=== PATIENT | male | born 1965 | race Caucasian/White ===

== ENCOUNTER 2017-05-29 13:49 | Inpatient (IN) | payer OTHER, MEDICARE ==
[2017-05-29] VITALS (33 sets, daily range): BP systolic 90–156; BP diastolic 55–91
[~2017-05-29] VITALS: Ht 177.8 cm; Wt 95.3 kg
--- NOTE | 2017-05-29 13:49 | NUR ---
Patient BIBA ACLS, transferred to bed 7. RN evaluating patient at bedside.
--- NOTE | 2017-05-29 14:36 | NUR ---
Patient transferred to bed 6 for further care. RN evaluating patient at bedside.
--- NOTE | 2017-05-29 14:47 | NUR ---
Dr. Alva evaluating patient at bedside.
--- NOTE | 2017-05-29 14:55 | NUR ---
15M BIBA C/O ETOH; PER PATHOLOGY SECRETARY/TRANSCRIPTIONIST, PT WAS RELEASED FROM [facility] TODAY AND PT DRANK 1 BOTTLE OF VODKA; AN=[id number]; PT WAS FOUND WITH [facility] FROM [facility]; UNKNOWN MEDICAL HX OR ALLERGIES; PT WAS DROWSY BUT AROUSABLE; PT IS NOW NOT AROUSABLE; RR ARE SWALOW; O2 SAT AT 83% ON RA; ER MATTEWS BY BEDSIDE
--- NOTE | 2017-05-29 15:00 | NUR ---
CALLED TO ER 6 TO INTUBATE PT AT BEDSIDE PT WAS INTUBATED AT 1508 WITH 7.5 ET TUBE AT 23 CM AT LEFT CORNER OF MOUTH Addendum: 05/29/17 at 1631 by Steff Rawls RT VENT SETTINGS AC14 VT550 PEEP 5 FIO2 100% ALARMS ON AND FUNCTIONING PROPERLY, AMBU BAG AT SIDE OF VENTILATOR AND VENTILATOR IS PLUGGED INTO RED OUTLET, B\S ARE DIMINISHED AND CLEAR, SXN PT MODERATE AMT OF THICK CREAM COLOR SECRETIONS Addendum: 05/29/17 at 1659 by Steff Rawls RT PT WAS TAKEN TO CT FOR SCAN OF HEAD AND BAGGED WITH 100% FIO2 THEN BACK TO ER 6 AND PLACED BACK ON VENT WITH SAME SETTINGS
--- NOTE | 2017-05-29 15:01 | NUR ---
1501 - PATENT IO ESTABLISED ON RIGHT LEG BY RESIDENT 1503 - 20MG ETOMIDATE GIVEN IO ON RIGHT LEG BY CRISELDA CONTRERAS 1504 - 100 MG SUCCYNYLCHOLINE GIVEN IO ON RIGHT LEG BY RN BEN 1504 - ATTEMPTED ENTUBATION BY RESIDENT 1507 - SPO2 100% VIA MANUAL VENTILATION, HR 110, BP 147/97 1508 - PT ENTUBATED BY DR RAMEY WITH 7.5 ET TUBE SECURE 23CM AT THE LIP, + COLOR CHANGE ON END TIDAL, MIST NOTED ON ET TUBE, BILATERAL CHEST RISE, AUDIBLE BL BS AUSCULTATED BY DR RAMEY, XRAY ORDERED
[2017-05-29] MEDS ORDERED: ONDANSETRON 4 MG/2 ML VIAL IVP PRN (15:20)
--- NOTE | 2017-05-29 15:32 | NUR ---
Patient will be admitted to care of Madeleine ABURTO. Admited to ICU. Will go to room ICU 5. Belongings list completed. Report to Nubia ABURTO.
[2017-05-29] MEDS ORDERED: PROPOFOL 1000 MG/100 ML PREMIX 100 ML IV ONE ×2 (15:45)
[2017-05-29] MEDS ORDERED: ETOMIDATE 20 MG/10 ML VIAL IVP ONE (15:45)
[2017-05-29] MEDS ORDERED: SUCCINYLCHOLINE CHLORIDE 200 MG/10 ML VIAL IVP ONE (15:45)
[2017-05-29] MEDS ORDERED: MULTIVITAMIN-12 10 ML, THIAMINE 100 MG, FOLIC ACID 1 MG, MAGNESIUM SULFATE 50% 2,000 MG... IV SCH ×5 (16:00)
--- NOTE | 2017-05-29 16:00 | NUR ---
PT TO CT VIA [facility] WITH UCHE APPLE RN AND URIEL EMT AND BUNDLE HELPER ON CM AND OXYGEN; NAD; STABLE FOR TRANSFER TO CT
--- NOTE | 2017-05-29 16:12 | NUR ---
Patient returned from CT scan. Dr. Alva, RT and RN re-evaluating patient at bedside.
--- NOTE | 2017-05-29 16:14 | NUR ---
PT RETURNED FROM CT WITH UCHE TREVINO EMT AND CLOUD SOFTWARE ENGINEER; NAD; WILL CONTINUE TO [facility]
[2017-05-29 16:28] LABS: ANION GAP 16.7 (8-16); CARBON DIOXIDE 23.5 mmol/L (21-32); CREATININE 0.9 mg/dL (0.7-1.3); POTASSIUM 4.2 mmol/L (3.5-5.1)
[2017-05-29 16:29] LABS: PROTHROMBIN TIME 9.4 secs (10.8-13.4)
[2017-05-29 16:33] LABS: ALBUMIN 3.7 g/dL (3.4-5.0); TOTAL BILIRUBIN 0.4 mg/dL (0.0-1.0)
[2017-05-29 16:34] LABS: ACETAMINOPHEN < 0.5 ug/ml (10-30); SALICYLATE < 2.8 mg/dL (2.8-20.0)
[2017-05-29 16:36] LABS: CHOL/HDL RATIO 2.4 (1-4.5); FREE T4 (FREE THYROXINE) 1.15 ng/dL (0.76-1.46); MAGNESIUM 2.3 mg/dL (1.8-2.4); PHOSPHORUS 4.1 mg/dL (2.5-4.9); THYROID STIMULATING HORMONE 1.03 uIU/mL (0.34-3.74)
[2017-05-29 16:43] LABS: BASOPHILS # (AUTO) 0.4 K/uL (0.00-0.22); EOSINOPHILS # (AUTO) 0.5 K/uL (0-0.4); HEMATOCRIT 42.5 % (36-52); HEMOGLOBIN 13.9 g/dL (12.0-18.0); LYMPHOCYTES # (AUTO) 1.1 K/uL (2.0-11.5); MEAN CORPUSCULAR HEMOGLOBIN 32 pg (27-31); MEAN CORPUSCULAR HGB CONC 33 g/dL (33-37); MEAN CORPUSCULAR VOLUME 97 fL (80-94); MONOCYTES # (AUTO) 0.5 K/uL (0.8-1.0); NEUTROPHILS # (AUTO) 4.3 K/uL (1.8-7.7); PLATELET COUNT (AUTO) 311 K/uL (140-450); RED BLOOD CELL COUNT(AUTO) 4.39 MIL/uL (4.20-6.10); RED CELL DISTRIBUTION WIDTH 14.4 % (11.6-13.7); WHITE BLOOD COUNT (AUTO) 6.8 K/uL (4.8-10.8)
--- NOTE | 2017-05-29 16:45 | NUR ---
pt transferred to icu 5 with miguel valentin, danyell rn, and rt; vss; pt tolerating vent; pulse ox=98%; pt stable for transfer
--- NOTE | 2017-05-29 16:55 | NUR ---
PT TRANSFERRED TO ICU 5 BAGGED WITH 100% FIO2 AND PLACED BACK ON VENT
--- NOTE | 2017-05-29 17:00 | NUR ---
ADMITTED PT FROM ER BY JUDY, PT IS SEDATED, FULL CODE, ON PROPOFOL 5 MCG/KG/MIN, BEDSIDE MONITOR SHOWS SR. ETT TO VENT WITH SETTING FIO2 80%, RR 14, TV 550, PEEP 5. NO S/S OF RESPIRATORY DISTRESS NOTED, ABDOMEN SOFT WITH ACTIVE BOWEL SOUND, CARBALLO CATH IN PLACE, WITH CLEAR YELLOW URINE NOTED. PT HAS IO TO RIGHT LOWER LEG RUNNING PROPOFOL, SKIN NON INTACT OPEN WOUND TO HEEL, GENERALIZED WEAKNESS NOTED, HOB ELEVATED IN 30 DEGREES WITH LOW BED POSITION, WILL CONTINUE TO MONITOR.
--- NOTE | 2017-05-29 17:00 | NUR ---
VENT CHECK, B\S ARE CLEAR AND NO SXN REQUIRED AT THIS TIME, PT IS SEDATED WITH CRISELDA WHITE AT BEDSIDE AND FIO2 DECREASED TO 80%
[2017-05-29 17:02] LABS: APPEARANCE,URINE CLEAR (CLEAR); BILIRUBIN,URINE NEGATIVE (NEGATIVE); BLOOD, URINE NEGATIVE (NEGATIVE); COLOR,URINE YELLOW (YELLOW); LEUKOCYTE ESTERASE ,URINE NEGATIVE (NEGATIVE); NITRITE, URINE NEGATIVE (NEGATIVE); PH,URINE 5.5 (5.0-9.0); UGLUCOSE NEGATIVE (NEGATIVE)
[2017-05-29 17:14] LABS: BARBITURATE, URINE NEG. ng/ml (NEG <=200); BENZODIAZEPINE, URINE NEG. ng/mL (NEG <=200); CANNABINOID, URINE NEG. ng/mL (NEG <=50); COCAINE, URINE NEG. ng/mL (NEG <=300); OPIATE, URINE NEG. ng/mL (NEG <=2000); PHENCYCLIDINE SCREEN,URINE NEG. ng/mL (NEG <=25)
--- NOTE | 2017-05-29 17:15 | NUR ---
AND DR. AVILA STARTED TO INSERT CENTRAL LINE, CONSENT SIGNED BY DOCTORS.
--- NOTE | 2017-05-29 18:00 | NUR ---
CENTRAL LINE INSERTION DONE.
[2017-05-29] MEDS: NACL 0.9% 1,000 ML IV SCH (18:50)
--- NOTE | 2017-05-29 19:11 | NUR ---
RECEIVED PT STABLE ON VENT SUPPORT AT DOCUMENTED SETTINGS, SXN'D SMALL THIN YELLOW SECRETIONS, NO RESP DISTRESS OR SOB NOTED, 7.5 ETT SECURED AT 23 CM AT LIP, BAG MASK AT BEDSIDE, ALARMS SET AND AUDIBLE, VENT PLUGGED INTO RED OUTLET, WILL CONTINUE TO MONITOR.
--- NOTE | 2017-05-29 19:15 | NUR ---
ENDORSED PT TO RONEL ABURTO FOR THE CONTINUITY OF CARE.
--- NOTE | 2017-05-29 19:25 | NUR ---
RECEIVED REPORT FROM CHRISTOPHER ABURTO
--- NOTE | 2017-05-29 19:30 | NUR ---
PATIENT IN BED, NO SIGNS OF DISTRESS. PATIENT SEDATED ON PROPOFOL DRIP AT 5MICS. PATIENT INTUBATED, ETT TO VENT AC MODE, FIO2 45%, TIDAL VOLUME 500, RATE 14 PEEP 5. PATIENT HAS A CARBALLO CATHETER IN PLACE. CLEAR BREATH SOUNDS ON AUSCULTATION. ACTIVE BOWEL SOUNDS. PATIENT HAS RIGHT IJ TRIPLE LUMEN CENTRAL LINE. AND RIGHT LEG INTRAOSSEOUS CATHETER. PATIENT HAS A WOUND ON HIS RIGHT ELBOW, AND RIGHT AND LEFT HEAL. PICTURES WHERE TAKEN. PATIENT CLOSE TO NURSES STATION. CALL LIGHT WITHIN REACH. WILL CONTINUE TO MONITOR.
--- NOTE | 2017-05-29 20:00 | NUR ---
PROPOFOL DRIP REDUCED TO 2.5MICS TO GET ACHIEVE A RASS SCORE OF -3.
[2017-05-29] MEDS ORDERED: DOCUSATE SODIUM 100 MG GELCAP PO SCH (21:00)
--- NOTE | 2017-05-29 21:00 | NUR ---
INTEROSSEOUS CATHETER REMOVED, PATIENT TOLERATED WELL. PRESSURE WAS PUT ON THE SIDE AND COVERED WITH A DRESSING.
[2017-05-29] MEDS: LORazepam 2 MG/ML VIAL IVP SCH (21:23)
--- NOTE | 2017-05-29 21:30 | NUR ---
2 RNS CONFIRMED THE PLACEMENT OF THE NG TUBE PLACEMENT.
--- NOTE | 2017-05-29 21:30 | NUR ---
NG TUBE WAS INSERTED IN TO PATIENTS LEFT NARES
--- NOTE | 2017-05-29 22:30 | NUR ---
PROPOFOL WAS REDUCED TO 1.5MIC TO ACHIEVE A RASS SCORE OF -3
[2017-05-29] MEDS ORDERED: PROPOFOL 200 MG/20 ML VIAL IV ONE (22:45)
[2017-05-30] VITALS (52 sets, daily range): BP systolic 85–139; BP diastolic 52–80
--- NOTE | 2017-05-30 00:15 | NUR ---
PATIENT IN BED, NO SIGNS OF DISTRESS. O2 SATURATION 100%. VENT SETTINGS CHECKED. ALL ALARMS IN PLACE. WILL CONTINUE TO MONITOR
[2017-05-30] MEDS ORDERED: PANTOPRAZOLE 80 MG in NACL 0.9% 100 ML IV SCH (02:05)
--- NOTE | 2017-05-30 03:16 | NUR ---
PATIENT IN BED, SLEEPING NO SIGNS OF DISTRESS. VENT SETTINGS CHECKED ALL ALARMS IN PLACE
--- NOTE | 2017-05-30 04:00 | NUR ---
PATIENT CLEANED, PROPOFOL INCREASED TO 5MICS
--- NOTE | 2017-05-30 05:30 | NUR ---
PATIENT RESTLESS, PROPOFOL INCREASED TO 10MICS
[2017-05-30 05:33] LABS: BASOPHILS # (AUTO) 0.4 K/uL (0.00-0.22); BASOPHILS % (AUTO) 4.3 % (0.0-2.0); EOSINOPHILS # (AUTO) 0.3 K/uL (0-0.4); EOSINOPHILS % (AUTO) 3.9 % (0.0-4.0); HEMATOCRIT 38.8 % (36-52); LYMPHOCYTES # (AUTO) 1.9 K/uL (2.0-11.5); LYMPHOCYTES % (AUTO) 21.5 % (20.5-51.1); MEAN CORPUSCULAR HEMOGLOBIN 32 pg (27-31); MEAN CORPUSCULAR HGB CONC 34 g/dL (33-37); MEAN CORPUSCULAR VOLUME 96 fL (80-94); MONOCYTES # (AUTO) 0.7 K/uL (0.8-1.0); MONOCYTES % (AUTO) 8.2 % (1.7-9.3); NEUTROPHILS # (AUTO) 5.5 K/uL (1.8-7.7); NEUTROPHILS % (AUTO) 62.1 % (42.2-75.2); PLATELET COUNT (AUTO) 299 K/uL (140-450); RED BLOOD CELL COUNT(AUTO) 4.02 MIL/uL (4.20-6.10); RED CELL DISTRIBUTION WIDTH 15.1 % (11.6-13.7); WHITE BLOOD COUNT (AUTO) 8.8 K/uL (4.8-10.8)
[2017-05-30] MEDS: LORazepam 2 MG/ML VIAL IVP SCH ×3 (05:40→21:12)
[2017-05-30] MEDS: NACL 0.9% 1,000 ML IV SCH ×3 (06:00→14:37)
[2017-05-30 06:27] LABS: MAGNESIUM 2.2 mg/dL (1.8-2.4); PHOSPHORUS 3.5 mg/dL (2.5-4.9)
--- NOTE | 2017-05-30 06:35 | NUR ---
REC'D PT ON [place] VENT SETTINGS AC14 VT 550 PEEP 5 FIO2 30% ALARMS ON AND FUNCTIONING PROPERLY, AMBU BAG IS AT SIDE OF VENTILATOR AND VENTILATOR IS PLUGGED INTO RED OUTLET, B\S ARE CLEAR AND DIMINISHED BILATERALLY, SXN PT SMALL AMT OF YELLOW SECRETIONS, PT IS ORALLY INTUBATED WITH 7.5 ET TUBE SECURED WITH ANCHOR FAST AT 23 CM AT LEFT CORNER OF MOUTH AND SKIN INTEGRITY IS INTACT, PT IS SEDATED WITH NO SIGNS OF DISTRESS NOTED AT THIS TIME
[2017-05-30 06:47] LABS: ANION GAP 13.5 (8-16); CARBON DIOXIDE 25.2 mmol/L (21-32); CREATININE 0.9 mg/dL (0.7-1.3); POTASSIUM 3.7 mmol/L (3.5-5.1)
[2017-05-30] MEDS ORDERED: LACTULOSE 20 GM/30 ML UDC PO SCH (07:00)
--- NOTE | 2017-05-30 07:34 | NUR ---
REPORT GIVEN TO ABDULKADIR ABURTO
--- NOTE | 2017-05-30 08:00 | NUR ---
INITIAL SHIFT ASSESSMENT DONE (SEE ASSESSMENT PART). PROPOFOL DRIP D/C AT THIS TIME PER RESIDENT MD ORDER. SLEEPING BUT EASILY AROUSABLE TO NAME CALLING. NO C/O PAIN. ON VENTILATOR, TOLERATING CURRENT SETTINGS WELL. O2 SAT 95-99%. SR ON MONITOR. SBP IN 90'S. NO ECTOPY NOTED. LEFT NARES NGT PATENT, INTACT, AND CLAMPED. HOB ELEVATED. UPDATED OF PLAN OF CARE. WILL CONTINUE TO MONITOR.
[2017-05-30] MEDS: LORazepam 2 MG/ML VIAL IVP PRN ×2 (08:30→13:47)
--- NOTE | 2017-05-30 08:30 | NUR ---
BECOMES RESTLESS AT THIS TIME, TRYING TO PULL OUT ETT. CALLED RESIDENT MD AND UPDATED OF STATUS. NEW ORDER RECEIVE. GIVEN ATIVAN 1 MG IVP AND STARTED ON BILATERAL SOFT WRIST RESTRAINTS. WILL CONTINUE TO MONITOR.
[2017-05-30] MEDS: FOLIC ACID 1 MG TAB PO SCH (08:58)
[2017-05-30] MEDS: CALCIUM CARB/VIT-D 500 MG/200 IU 1 TAB PO SCH (08:58)
[2017-05-30] MEDS: PANTOPRAZOLE 40 MG INJ VIAL IVP SCH (08:58)
[2017-05-30] MEDS: MULTIVITAMIN 1 TAB PO SCH (08:59)
[2017-05-30] MEDS: THIAMINE 100 MG TAB PO SCH (08:59)
[2017-05-30] MEDS ORDERED: DOCUSATE 100 MG/10 ML UDC GT SCH (09:00)
--- NOTE | 2017-05-30 09:18 | NUR ---
PER PT MEDICAL CONDITION AND MEDICAL CHART, RD IS CURRENTLY UNABLE TO ASSESS OR SCREEN AND CATEGORIZE PATIENT'S NUTRITION RISK. PATIENT WILL BE SEEN AGAIN FOR NUTRITION SCREENING WITHIN 2 DAYS FROM ADMIT DATE. 05/31/17 KVNG FRANCES MBA, RD
--- NOTE | 2017-05-30 09:25 | NUR ---
VENT CHECK, NO SXN REQUIRED AT THIS TIME, AIRWAY IS PATENT AND PT IS SLEEPING
--- NOTE | 2017-05-30 10:00 | NUR ---
RESTING IN BED. NO SIGNS OF PAIN OR AGITATION NOTED. TOLERATING VENTILATOR WELL. O2 SAT 98-100%. ST ON MONITOR. SBP IN 100'S. NO ECTOPY NOTED. HOB ELEVATED. WILL CONTINUE TO MONITOR.
--- NOTE | 2017-05-30 10:10 | NUR ---
ROVING INSPECTOR IS IN THE ROOM DOING 2D ECHO TO THE PATIENT.
--- NOTE | 2017-05-30 11:10 | NUR ---
VENT CHECK, SXN PT FOR SPUTUM MODERATE AMT OF THICK YELLOW SECERTIONS, PT IS AWAKE AIRWAY IS PATENT
--- NOTE | 2017-05-30 12:00 | NUR ---
REASSESSMENT DONE. NEURO STATUS STILL THE SAME. NO C/O PAIN. TOLERATING CURRENT VENTILATOR SETTINGS WELL. O2 SAT 99-100%. ST ON MONITOR. SBP IN 100'S. NO ECTOPY NOTED. HOB ELEVATED. UPDATED OF PLAN OF CARE. WILL CONTINUE TO MONITOR.
--- NOTE | 2017-05-30 13:09 | NUR ---
VENT CHECK, NO SXN REQUIRED AT THIS TIME, PT IS AWAKE AND BITTING ON TUBE
--- NOTE | 2017-05-30 13:47 | NUR ---
BECOMES RESTLESS AGAIN AT THIS TIME, TRYING TO PULL OUT THE ETT AND NGT. GIVEN ATIVAN 1 MG IVP. WILL CONTINUE TO MONITOR.
--- NOTE | 2017-05-30 14:00 | NUR ---
SLEEPING AT THIS TIME BUT EASILY AROUSABLE. NO SIGNS OF PAIN OR AGITATION NOTED. TOLERATING VENTILATOR WELL. O2 SAT 94-97%. ST ON MONITOR. SBP IN 100'S. NO ECTOPY NOTED. HOB ELEVATED. WILL CONTINUE TO MONITOR.
--- NOTE | 2017-05-30 15:04 | NUR ---
VENT CHECK, SXN PT SMALL AMT OF YELLOW SECRETIONS, PT IS AWAKE AND BITTING THE ET TUBE WITH NO SIGNS OF DISTRESS NOTED AT THIS TIME
--- NOTE | 2017-05-30 15:20 | NUR ---
DR BROOKS IS IN THE ROOM. RT IS ALSO IN THE ROOM. MD TALK TO THE PATIENT. NEW ORDERS RECEIVE.
--- NOTE | 2017-05-30 15:25 | NUR ---
PT EXTUBATED PER AND PLACED ON 3LNC
--- NOTE | 2017-05-30 15:25 | NUR ---
RT EXTUBATED THE PATIENT AT THIS TIME AFTER THOROUGHLY SUCTIONING THE ETT AND MOUTH PER DR BROOKS'S ORDER. TOLERATED THE PROCEDURE WELL. RT PUT THE PATIENT ON O2 AT 3 L/MIN VIA NC AFTER EXTUBATION. O2 SAT 94%. WILL CONTINUE TO MONITOR.
[2017-05-30] MEDS: DEXT 5% / NACL 0.45% 1,000 ML IV SCH (15:50)
--- NOTE | 2017-05-30 16:00 | NUR ---
REASSESSMENT DONE. DROWSY, FOLLOWS COMMAND. ORIENTED X3. PUENTE BUT WEAK. NO C/O PAIN OR DYSPNEA. O2 SAT 93-96% ON O2 AT 3 L/MIN VIA NC. ST ON MONITOR. SBP IN 110'S. NO ECTOPY NOTED. BODY TEMP OF 100.1 DEGREES FAHRENHEIT AT THIS TIME. GIVEN COOLING MEASURES. HOB ELEVATED. UPDATED OF PLAN OF CARE. WILL CONTINUE TO MONITOR.
[2017-05-30] MEDS: ACETAMINOPHEN 325 MG TAB PO PRN (16:41)
--- NOTE | 2017-05-30 16:41 | NUR ---
C/O HEADACHE AT THIS TIME. GIVEN TYLENOL 650 MG VIA NGT. WILL CONTINUE TO MONITOR.
--- NOTE | 2017-05-30 18:00 | NUR ---
HAS BM AT THIS TIME, MODERATE AMOUNT, PASTY, AND BROWN COLOR. GIVEN PARTIAL BATH AND LINENS ARE CHANGE. TOLERATED THE PROCEDURE WELL. NO C/O PAIN OR DYSPNEA. O2 SAT 94-96% ON O2 AT 3 L/MIN VIA NC. ST ON MONITOR. SBP IN 100'S-110'S. NO ECTOPY NOTED. HOB ELEVATED. WILL CONTINUE TO MONITOR.
--- NOTE | 2017-05-30 19:15 | NUR ---
REPORT TAKEN FROM EARNEST - RN WITH RESUME CARE. PT'S AWAKE, ALERT, ORIENTED X 4 WITH NPO , AWAITING FOR SWALLOW EVAL IN AM. NG TUBE AT LEFT NARE FOR MEDICATION, KEEP NPO. CARBALLO CATH IN SITU & GRAVITY TO FLOOR.
--- NOTE | 2017-05-30 19:15 | NUR ---
REPORT GIVEN TO INCOMING CRATE TIER RN, RN RENUKA.
--- NOTE | 2017-05-30 19:30 | NUR ---
ORAL CARE DONE , ORAL SWAB GIVEN , PT ABLE TO DO HIMSELF, TOLERATING WELL.
--- NOTE | 2017-05-30 20:15 | NUR ---
DR. LIMA AT THE BEDSIDE WITH PT , EDUCATE TO PT RE. SWALLOW EVAL AND KEEP NPO AT THIS TIME , PT RESPOND WELL WITH NOT SATISFIED. PT WANT TO DRINK WATER , PROVIDE ORAL CARE WITH ICE WATER SWAB. REINFORCED PT WITH HOB @ 30.
--- NOTE | 2017-05-30 20:30 | NUR ---
PT PULL OUT NG TUBE , RE ORIENTED TO ICU , PT STATUS, PT WANT TO GO AMA AT THIS TIME. EDUCATED TO PT, REGARDING AMA SITUATION WITH PT'S CONDITION. PT AGREE TO STAY AT THIS TIME . PT HAD BM X 1 WITH KAYLYN ANAL CARE DONE. CARBALLO CATH INSITU, CARE DONE , GRAVITY TO FLOOR.
[2017-05-30] MEDS ORDERED: levETIRAcetam 100 MG/ML VIAL IV ONE (21:14)
[2017-05-30] MEDS: levETIRAcetam 500 MG in NACL 0.9% 100 ML IV SCH (21:18)
--- NOTE | 2017-05-30 21:30 | NUR ---
PT WILL TRANSFER TO ROOM 111B WITH OK TO GIVE BEDSIDE REPORT AT THIS TIME.
--- NOTE | 2017-05-30 22:00 | NUR ---
REPORT ENDORSED AT BEDSIDE TO NURSE ENEIDA - RN WITH RESUME CARE. IVPB KEPPRA INFUSION STILL INGRESS VIA TRIPLE LUMENS , LINE PATENT . NO REACTION NOTED.
--- NOTE | 2017-05-30 22:07 | NUR ---
RECEIVED FROM ICU AWAKE AND ALERT. PT. DX. CHANGE OF LOC. WITH 02 AT 4 LITERS PER MINUTE /NC WITH 02 SAT AT 96%. CENTRAL LINE TRIPLE LUMEN TO RIGHT INTERNAL JUGULAR. PATENT AND FLUSHED WITH NS. KEPPRA INFUSING AT THIS TIME. VERBALIZING SIMPLE NEEDS. WITH WEAKNESS RT AFFLICTION. BED ALARM ON AND EXPLAINED TO PT. THAT HE NEEDS TO USE CALL LIGHT FOR HELP. "OK" ON NPO AT THIS TIME RT FOR SWALLOW EVALUATION TOMORROW PER RN IN ICU. RW=366/78 , T 100 AND PULSE OF 105. TELEMETRY MONITORING.
--- NOTE | 2017-05-30 23:28 | NUR ---
PT. ABLE TO WALK TO RESTROOM SITUATED INSIDE ROOM TO HAVE A BOWEL MOVEMENT. ABLE TO VERBALIZE NEEDS. CALL LIGHT WITH IN REACH.TELEMETRY MONITORING. WITH PADDED BEDRAILS FOR SEIZURE PRECAUTIONS.
[2017-05-31 00:37] VITALS: BP 113/73
--- NOTE | 2017-05-31 03:09 | NUR ---
PT. AWAKE AT THIS TIME AND FOUND THAT HE CUT OFF HIS CENTRAL LINE TUBING WITH HIS BARE HAND. CALLED MD LIMA/RESIDENT RE: INCIDENT. WITH ORDERS TO DISCONTINUE CL. DISCONTINUED CL BY CHARGE NURSE WITH BLUE TIP INTACT. COVERED WITH DRESSING . NO BLEEDING NOTED. NEW IVF LINE INSERTED TO RIGHT FOREARM #22. TOLERATED WELL. WITH ORDER MAY GIVE ICE CHIPS. RE-ORIENTED PT. IMPORTANCE OF IV ACCESS. "OK" IVF SITE WRAPPED WITH BANDAGE.
[2017-05-31 04:11] VITALS: BP 116/86
[2017-05-31] MEDS: DEXT 5% / NACL 0.45% 1,000 ML IV SCH ×2 (04:27→10:07)
[2017-05-31] MEDS: LORazepam 2 MG/ML VIAL IVP SCH ×2 (04:31→13:49)
--- NOTE | 2017-05-31 06:14 | NUR ---
SLEEPING AT THIS TIME. NO RESTLESSNESS NOTED.
[2017-05-31 06:27] LABS: BASOPHILS # (AUTO) 0.2 K/uL (0.00-0.22); BASOPHILS % (AUTO) 1.2 % (0.0-2.0); EOSINOPHILS # (AUTO) 0.4 K/uL (0-0.4); EOSINOPHILS % (AUTO) 3.3 % (0.0-4.0); HEMATOCRIT 38.6 % (36-52); HEMOGLOBIN 13.1 g/dL (12.0-18.0); LYMPHOCYTES # (AUTO) 1.4 K/uL (2.0-11.5); LYMPHOCYTES % (AUTO) 10.7 % (20.5-51.1); MEAN CORPUSCULAR HEMOGLOBIN 33 pg (27-31); MEAN CORPUSCULAR HGB CONC 34 g/dL (33-37); MEAN CORPUSCULAR VOLUME 96 fL (80-94); MONOCYTES # (AUTO) 1.1 K/uL (0.8-1.0); MONOCYTES % (AUTO) 8.5 % (1.7-9.3); NEUTROPHILS # (AUTO) 10.1 K/uL (1.8-7.7); NEUTROPHILS % (AUTO) 76.3 % (42.2-75.2); PLATELET COUNT (AUTO) 312 K/uL (140-450); RED BLOOD CELL COUNT(AUTO) 4.02 MIL/uL (4.20-6.10); RED CELL DISTRIBUTION WIDTH 14.6 % (11.6-13.7)
[2017-05-31 06:49] LABS: ANION GAP 11.8 (8-16); CARBON DIOXIDE 25.9 mmol/L (21-32); CREATININE 0.9 mg/dL (0.7-1.3); POTASSIUM 3.7 mmol/L (3.5-5.1)
[2017-05-31 06:54] LABS: MAGNESIUM 2.3 mg/dL (1.8-2.4); PHOSPHORUS 2.5 mg/dL (2.5-4.9)
--- NOTE | 2017-05-31 07:20 | NUR ---
ASSUMED CONTINUITY OF CARE. NO SIGNS AND SYMPTOMS OF ACUTE DISTRESS NOTED. INITIAL ASSESSMENT DONE. CALM, QUIET, AND COOPERATIVE. KEEP COMFORTABLE ON BED. EXPLAINED DIAGNOSIS, PLAN OF CARE, PAIN MANAGEMENT TEACHING, USE OF CALL LIGHT/BED/TV/BATHROOM. VERBALIZED UNDERSTANDING. SEIZURE AND FALL PRECAUTION APPLIED. CALL LIGHT WITHIN REACH.
[2017-05-31 07:29] LABS: WHITE BLOOD COUNT (AUTO) 13.2 K/uL (4.8-10.8)
[2017-05-31 08:00] VITALS: BP 129/76
--- NOTE | 2017-05-31 08:00 | NUR ---
Patient's Plan of Care was discussed and reviewed with CREDIT REPORT CHECKER: SARAH
--- NOTE | 2017-05-31 08:11 | NUR ---
PATIENT HAS BEEN SCREENED AND CATEGORIZED MODERATE NUTRITION RISK. PATIENT WILL BE SEEN WITHIN 3-5 DAYS OF ADMISSION. 06/01/17-06/03/[address]
[2017-05-31] MEDS: THIAMINE 100 MG TAB PO SCH (09:00)
[2017-05-31] MEDS: MULTIVITAMIN 1 TAB PO SCH (09:00)
[2017-05-31] MEDS: ESCITALOPRAM 20 MG TAB PO SCH (09:00)
[2017-05-31] MEDS: DOCUSATE 100 MG/10 ML UDC PO SCH (09:00)
[2017-05-31] MEDS: CALCIUM CARB/VIT-D 500 MG/200 IU 1 TAB PO SCH (09:00)
[2017-05-31] MEDS: FOLIC ACID 1 MG TAB PO SCH (09:00)
[2017-05-31] MEDS: levETIRAcetam 500 MG in NACL 0.9% 100 ML IV SCH ×2 (09:21→20:48)
[2017-05-31] MEDS: PANTOPRAZOLE 40 MG INJ VIAL IVP SCH (09:21)
[2017-05-31 12:00] VITALS: BP 120/73
--- NOTE | 2017-05-31 12:05 | NUR ---
PT. CAME FOR PT EVAL AND TREATMENT. PT. CALM AND COOPERATIVE.
--- NOTE | 2017-05-31 12:35 | NUR ---
* ST NOTE * Pt seen at bedside after receiving clearance from nsg. Bedside dysphagia and oral mechanism exams completed. See evaluation report for further details. Pt tolerating 2/2 alternating PO trials of puree apple sauce 5 CCs at a time via a spoon w/out s/s of aspiration. Pt also tolerating 3/3 alternating PO trials of nectar-thickened apple juice 5 CCs at a time via a spoon as well w/out wet or gargly vocal quality after PO intake. Pt then tolerating 4/4 alternating PO trials of regular solid saltine crackers w/out s/s of aspiration exhibiting occasional residue on oral cavity after PO intake but pt able to independently clear oral cavity alternating btwn solids and liquids. Pt then tolerating 4/5 alternating PO trials of thin liquid apple juice via a cup w/out s/s of aspiration, but demonstrating delayed residual throat clearing after last PO trial of thin liquid via a cup. Pt education completed regarding safe swallow compensatory strategies pt could employ to aid with swallow function as well as to clear oral cavity of residue with pt verbalizing understanding of clinician's recommendations. Pt education also completed regarding pt being cleared for PO intake of M/S-chopped textures with Lamboglia-thickened liquids as of today with pt verbalizing understanding. Pt education lastly completed regarding pt's liquid consistency being NTL today only secondary to pt being s/p extubation less than 24 hours ago. However pt's liquid diet consistency may be upgraded upon pt's request anytime tomorrow, Tuesday06/01/17 to assure there has been at least over 36 hours s/p extubation, with pt verbalizing understanding and agreement with clinician's recommendations. No further ST follow up recommended at this time. Pt and caregivers/nsg education completed regarding results of evaluation, benefits of abiding by recommended PO diet consistencies and aspiration precautions, and prognosis for improvement, with pt and caregivers/nsg verbalizing understanding and agreement with clinician's recommendations. Recommend: - PO diet consistency of Mechanical soft-chopped textures with Lamboglia-thickened liquids for all meals - Supervision by caregivers/staff during PO intake to assure aspiration precautions are in place s/p extubation - MD/Nsg may upgrade pt's liquid consistency to thin liquids tomorrow, Tuesday, 2016 if pt requests No further ST follow up recommended at this time. G8996 G8997 CI G8998 CI NOMS Level 2 Time In/Out 11:00 - 11:45
--- NOTE | 2017-05-31 14:00 | NUR ---
DR. MARTINEZ CAME, SEEN PT., AND CHECKED PT. CHART.
[2017-05-31 16:00] VITALS: BP 115/72
--- NOTE | 2017-05-31 19:17 | NUR ---
BEDSIDE REPORT GIVEN TO GEGE AL. IVF INFUSING WELL. IN STABLE CONDITION.
--- NOTE | 2017-05-31 19:30 | NUR ---
RECEIVED REPORT FROM AM NURSE. PT RESTING IN BED, AOX2, FORGETFUL AT TIMES, ABLE TO VERBALIZED NEEDS. PT REORIENTED. PT DENIES CHEST PAIN, SOB OR S/S OF ACUTE DISTRESS. POSITION CLASSIFICATION SPECIALIST IN PLACE. SKIN TEAR NOTED ON LEFT HEEL, DRESSING CLEAN DRY AND INTACT. IV ACCESS ASYMPTOMATIC, PATENT AND INTACT. IVF INFUSING WELL. DISCUSSED AND REVIEWED PLAN OF CARE WITH PT. PT STATED "OK." WILL CONTINUE WITH CONSTANT REINFORCEMENT. ASSISTED PT TO RESTROOM, PT ABLE TO AMBULATE WITH 1PERSON STANDBY ASSIST, TOLERATED WELL. PT ASSISTED BACK TO BED. ALL NEEDS MET. SAFETY MEASURES ENSURED. CALL LIGHT WITHIN REACH. WILL CONTINUE TO MONITOR.
[2017-05-31 20:00] VITALS: BP 113/75
[2017-05-31] MEDS ORDERED: NICOTINE TRANSD SYS 14 MG/24 HR PATCH TD SCH (20:15)
--- NOTE | 2017-05-31 20:15 | NUR ---
CALLED DR LIMA, MADE AWARE THAT PT WAS ASKING TO SMOKE CIGARETTES, PT REQUESTED NICOTINE PATCH. DISCUSSED THAT PT HAS SCHEDULE ATIVAN IV 1MG Q8H, AND THAT PT CAN TAKE PO AND PT AGREED TO TAKE PO. ORDERS PENDING, WILL CARRY OUT.
[2017-05-31] MEDS: LORazepam 1 MG TAB PO SCH (20:48)
--- NOTE | 2017-05-31 20:55 | NUR ---
ADMINISTERED DUE MEDICATIONS WITH EDUCATION. PT STATED "OK." PT TOLERATED MEDS WELL. IVPB INFUSING WELL. ALL NEEDS MET. SAFETY MEASURES ENSURED. CALL LIGHT WITHIN REACH. WILL CONTINUE TO MONITOR.
--- NOTE | 2017-05-31 21:26 | NUR ---
PT C/O NAUSEA. ADMINISTERED ZOFRAN IVP PRN WITH EDUCATION. PT VERBALIZED UNDERSTANDING, TOLERATED MED WELL. ALL NEEDS MET. SAFETY MEASURES ENSURED. CALL LIGHT WITHIN REACH. WILL CONTINUE TO MONITOR.
[2017-05-31] MEDS ORDERED: traZODone 50 MG TAB PO SCH (21:40)
--- NOTE | 2017-05-31 21:57 | NUR ---
CALLED DR LIMA, MADE AWARE OF PT'S C/O INSOMNIA, PT REQUESTING TRAZODONE. ORDERS RECEIVED AND VERIFIED. UNABLE TO PULL DUE TRAZODONE FROM [facility] FOR TONIGHT'S SCHEDULED TIME. CALLED TOW PICKER TO OVERRIDE MED, WHO WAS UNABLE TO PULL MED FOR THIS TIME. WAS ABLE TO OVERRIDE MED FOR SCHEDULED TRAZODONE FOR TOMORROW NIGHT INSTEAD. ADMINISTERED DUE MED TRAZODONE PO FOR INSOMNIA WITH EDUCATION. PT VERBALIZED UNDERSTANDING, TOLERATED MED WELL. ALL NEEDS MET. SAFETY MEASURES ENSURED. CALL LIGHT WITHIN REACH. WILL CONTINUE TO MONITOR.
--- NOTE | 2017-05-31 23:58 | NUR ---
PT SLEEPING COMFORTABLY BUT AROUSABLE. NO S/S OF ACUTE DISTRESS. ASSISTED PT TO THE RESTROOM, PT ABLE TO AMBULATE WITH STANDBY ASSISTANCE. PT BACK IN BED, TOLERATED WELL. ALL NEEDS MET. IVF INFUSING WELL. SAFETY MEASURES ENSURED. CALL LIGHT WITHIN REACH. WILL CONTINUE TO MONITOR.
[2017-06-01] VITALS: BP 114/74
--- NOTE | 2017-06-01 01:00 | NUR ---
BILATERAL HEELS CLEANSED WITH NS AND GAUZE, COVERED WITH COMPOSITE DRESSING. PT TOLERATED WELL. DRESSING TO PREVIOUS CENTRAL LINE SITE REMOVED, SITE ASYMPTOMATIC, NO S/S OF BLEEDING. CLEANSED WITH CHLORHEXIDINE, COVERED WITH COMPOSITE DRESSING. PT SLEEPING COMFORTABLY, TOLERATED WELL. ALL NEEDS MET. SAFETY MEASURES ENSURED.
[2017-06-01 04:00] VITALS: BP 111/66
[2017-06-01] MEDS: LORazepam 1 MG TAB PO SCH ×2 (05:11→12:16)
--- NOTE | 2017-06-01 05:11 | NUR ---
PT SLEEPING COMFORTABLY BUT AROUSABLE. ADMINISTERED DUE SCHEDULED ATIVAN PO WITH EDUCATION. PT STATED "OK," TOLERATED MED WELL. ALL NEEDS MET. IVF INFUSING WELL. SAFETY MEASURES ENSURED. CALL LIGHT WITHIN REACH.
--- NOTE | 2017-06-01 06:42 | NUR ---
ADMINISTERED PNA VACCINE WITH EDUCATION. PT VERBALIZED UNDERSTANDING, TOLERATED MED WELL. ALL NEEDS MET. SAFETY MEASURES ENSURED. CALL LIGHT WITHIN REACH. WILL CONTINUE TO MONITOR.
--- NOTE | 2017-06-01 07:15 | NUR ---
ENDORSED PLAN OF CARE TO AM NURSE. CONDITION STABLE.
--- NOTE | 2017-06-01 07:20 | NUR ---
RECEIVED HANDOFF REPORT FROM AM RN. PATIENT A&OX2. IV SITE PATENT AND INTACT. PATIENT DENIES PAIN. NO SIGNS AND SYMPTOMS OF ACUTE DISTRESS NOTED. CALL LIGHT WITHIN REACH. WILL CONTINUE TO MONITOR.
[2017-06-01] MEDS ORDERED: PNEUMOCOCCAL VACCINE 23 MCG/0.5 ML VIAL IMVAC SCH (07:30)
[2017-06-01] MEDS: DEXT 5% / NACL 0.45% 1,000 ML IV SCH (07:35)
[2017-06-01 08:23] VITALS: BP 107/77
[2017-06-01] MEDS: DOCUSATE 100 MG/10 ML UDC PO SCH (08:49)
[2017-06-01] MEDS: CALCIUM CARB/VIT-D 500 MG/200 IU 1 TAB PO SCH (08:50)
[2017-06-01] MEDS: ESCITALOPRAM 20 MG TAB PO SCH (08:50)
[2017-06-01] MEDS: MULTIVITAMIN 1 TAB PO SCH (08:51)
[2017-06-01] MEDS: THIAMINE 100 MG TAB PO SCH (08:51)
[2017-06-01] MEDS: FOLIC ACID 1 MG TAB PO SCH (08:52)
[2017-06-01] MEDS: PANTOPRAZOLE 40 MG INJ VIAL IVP SCH (08:53)
[2017-06-01] MEDS: levETIRAcetam 500 MG in NACL 0.9% 100 ML IV SCH (08:53)
--- NOTE | 2017-06-01 08:53 | NUR ---
PATIENT GIVEN AM MEDS. PATIENT A&OX4. PATIENT DENIES PAIN. NO SIGNS AND SYMPTOMS OF ACUTE DISTRESS. CALL LIGHT WITHIN REACH. WILL CONTINUE TO MONITOR.
--- NOTE | 2017-06-01 11:42 | NUR ---
PATIENT AWAKE AND ALERT. PATIENT DENIES PAIN. NO SIGNS AND SYMPTOMS OF ACUTE DISTRESS NOTED. CALL LIGHT WITHIN REACH. WILL CONTINUE TO MONITOR.
[2017-06-01 12:00] VITALS: BP 107/66
--- NOTE | 2017-06-01 13:47 | NUR ---
SS NOTE: PER SANTOSH FROM [facility] ([phone]), THEY ARE ABLE TO ACCEPT PT WHEN PT IS STABLE FOR DISCHARGE. I SPOKE WITH PT BEDSIDE AND INFORMED HIM OF THE ABOVE INFORMATION. PT STATED THAT HE IS IN AGREEMENT WITH GOING TO [facility] UPON DISCHARGE. SANTOSH AND GAURAV FROM [facility] MET WITH PT BEDSIDE TO ANSWER ANY QUESTIONS THAT HE MAY HAVE.
[2017-06-01] MEDS ORDERED: KEP500 PO (13:56)
[2017-06-01] MEDS ORDERED: ESCI20TA47 PO (13:56)
[2017-06-01] MEDS ORDERED: TRAZ-286 PO (13:56)
[2017-06-01] MEDS ORDERED: ESZO2TAB PO (13:56)
--- NOTE | 2017-06-01 14:30 | NUR ---
PHYSICAL THERAPY CO-SIGN The Physical Therapy Progress Notes documented by Radio Talk Show Host have been reviewed. 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 Patient is making good and steady progress with PT. Plan: possible transfer to another facility (SNF) later today. Addendum: 06/01/17 at 1501 by Abby Freeman PT Amended: Links added.
--- NOTE | 2017-06-01 14:30 | NUR ---
SS NOTE: PER SANTOSH FROM [facility] ([phone]), PT CAN GO TO ROOM 226A ANYTIME UNDER DR. Young YOON. SHE ALSO STATED THAT THEY WILL PAY FOR WHEELCHAIR TRANSPORT FOR PT. EVELYN W[place].
--- NOTE | 2017-06-01 14:36 | NUR ---
CM NOTE PATIENT TO BE PICKED UP BY [facility] VIA WHEELCHAIR GOING TO [facility], RM [address]. ETA 1800. JAYME AREVALO & ANNELIESE ABURTO MADE AWARE.
--- NOTE | 2017-06-01 14:39 | NUR ---
PATIENT AWAKE AND ALERT. PATIENT DENIES PAIN. NO SIGNS AND SYMPTOMS OF ACUTE DISTRESS NOTED. CALL LIGHT WITHIN REACH. WILL CONTINUE TO MONITOR.
[2017-06-01 16:00] VITALS: BP 107/61
[2017-06-01] MEDS: ACETAMINOPHEN 325 MG TAB PO PRN (16:24)
--- NOTE | 2017-06-01 17:10 | NUR ---
CALLED [facility] TO GIVE REPORT TO ADRIANNE. PATIENT IS IN AGREEMENT AND UNDERSTANDING OF TRANSFER.
--- NOTE | 2017-06-01 18:12 | NUR ---
PATIENT PICKED UP BY [facility] FOR TRANSFER. PATIENT IN STABLE CONDITION. NO SIGNS OR SYMPTOMS OF ACUTE DISTRESS NOTED.
[2017-06-01] MEDS ORDERED: NICOTINE TRANSD SYS 14 MG/24 HR PATCH TD SCH (21:00)
== END 2017-06-01 18:14 | DRG 208 ==
LOC: MED 13:49 → MIC 15:23 → MTU 05-30 21:46
PROVIDERS: ADMIT Family Medicine; ATTEND Family Medicine
PROC: 0BH17EZ Insertion of Endotracheal Airway into Trachea, Via Natural or Artificial Opening (ICD-10-PCS; principal; 2017-03-28)
PROC: 5A1935Z Respiratory Ventilation, Less than 24 Consecutive Hours (ICD-10-PCS; 2017-03-28)
PROC: 0Q9 Lower Bones, Drainage (ICD-10-PCS; 2017-05-29)
PROC: 02HV33Z Insertion of Infusion Device into Superior Vena Cava, Percutaneous Approach (ICD-10-PCS; 2017-05-29)
PROC: B548ZZA Ultrasonography of Superior Vena Cava, Guidance (ICD-10-PCS; 2017-05-29)
PROC: 0HBRXZZ Excision of Toe Nail, External Approach (ICD-10-PCS; 2017-05-30)
DX: J96.01 Acute respiratory failure with hypoxia (principal); G92 Toxic encephalopathy; E87.0 Hyperosmolality and hypernatremia; F33.1 Major depressive disorder, recurrent, moderate; L97.429 Non-pressure chronic ulcer of left heel and midfoot with unspecified severity; E83.51 Hypocalcemia; B35.1 Tinea unguium; E11.9 Type 2 diabetes mellitus without complications; F10.129 Alcohol abuse with intoxication, unspecified; D72.829 Elevated white blood cell count, unspecified; G40.909 Epilepsy, unspecified, not intractable, without status epilepticus; F17.210 Nicotine dependence, cigarettes, uncomplicated; Z59.0 Homelessness; R32 Unspecified urinary incontinence; G47.00 Insomnia, unspecified
CPT/HCPCS: 31500; 36415; 36600; 36680; 51702; 70450; 71010; 80048; 80053; 80305; 81003; 82140; 82150; 82803; 83036; 83605; 83690; 83735; 83880; 84100; 84439; 84443; 84484; 85025; 85610; 85730; 87070; 87081; 87086; 87186; 87205; 89220; 90732; 92526; 94002; 94003; 97116; 97530; 99285; A9153; C9113; G0480; G0482; J0330; J1642; J1953; J2060; J2405; J2704; J3411; J3475; J3490; J7030; Q0092